=== PATIENT | female | born 1985 | race African-American/Black ===

== ENCOUNTER 2021-04-09 05:25 | Inpatient (IN) | payer OTHER, SELFPAY ==
[~2021-04-09] VITALS: Ht 160 cm; Wt 102.5 kg
[2021-04-09] MEDS ORDERED: CITRIC ACID/SODIUM CITRATE 30 ML UDC PO SCH (05:50)
[2021-04-09] MEDS ORDERED: METHYLERGONOVINE 0.2 MG/ML AMP IM PRN ×2 (05:50→08:40)
[2021-04-09] MEDS ORDERED: LACTATED RINGERS 1,000 ML IV SCH (05:50)
[2021-04-09 06:54] VITALS: BP 124/72
[2021-04-09] MEDS ORDERED: ceFAZolin 1,000 MG VIAL ONE (07:02)
[2021-04-09] MEDS ORDERED: MIDAZOLAM 2 MG/2 ML VIAL ONE (07:19)
[2021-04-09] MEDS ORDERED: MORPHINE PRES FREE 10 MG/10 ML AMP IV ONE (07:19)
[2021-04-09 07:29] LABS: BASOPHILS % (AUTO) 0.4 % (0.0-2.0); EOSINOPHILS # (AUTO) 0.1 K/uL (0-0.4); EOSINOPHILS % (AUTO) 0.9 % (0.0-4.0); HEMATOCRIT 36.7 % (36-48); HEMOGLOBIN 12.1 g/dL (12.0-16.0); MEAN CORPUSCULAR HEMOGLOBIN 29 pg (27-31); MEAN CORPUSCULAR HGB CONC 33 g/dL (33-37); MEAN CORPUSCULAR VOLUME 88.7 fL (80-94); MONOCYTES # (AUTO) 0.7 K/uL (0.8-1.0); MONOCYTES % (AUTO) 10.6 % (1.7-9.3); NEUTROPHILS # (AUTO) 3.8 K/uL (1.8-7.7); NEUTROPHILS % (AUTO) 58.1 % (42.2-75.2); PLATELET COUNT (AUTO) 225 K/uL (140-450); RED BLOOD CELL COUNT(AUTO) 4.14 MIL/uL (4.20-5.40); RED CELL DISTRIBUTION WIDTH 14.1 % (11.6-13.7); WHITE BLOOD COUNT (AUTO) 6.6 K/uL (4.8-10.8)
[2021-04-09] MEDS ORDERED: ceFAZolin 1,000 MG VIAL IVP ONE (07:30)
[2021-04-09 07:43] LABS: APPEARANCE,URINE HAZY (CLEAR); BILIRUBIN,URINE NEGATIVE (NEGATIVE); COLOR,URINE YELLOW (YELLOW); LEUKOCYTE ESTERASE ,URINE 2+ (NEGATIVE); NITRITE, URINE NEGATIVE (NEGATIVE); PH,URINE 7.5 (5.0-9.0); UGLUCOSE NEGATIVE (NEGATIVE)
[2021-04-09 07:44] LABS: ALBUMIN 2.6 g/dL (3.4-5.0); CREATININE 0.6 mg/dL (0.6-1.3); POTASSIUM 3.3 mmol/L (3.5-5.1); TOTAL BILIRUBIN 0.5 mg/dL (0.0-1.0)
[2021-04-09] MEDS ORDERED: diphenhydrAMINE 50 MG/ML VIAL IVP PRN ×2 (08:05)
[2021-04-09] MEDS ORDERED: NALBUPHINE 10 MG/ML AMP IVP PRN (08:05)
[2021-04-09] MEDS ORDERED: NALOXONE 0.4 MG/ML VIAL IVP PRN ×3 (08:05)
[2021-04-09] MEDS ORDERED: MEPERIDINE 25 MG/ML SYR IVP PRN (08:05)
[2021-04-09] MEDS ORDERED: ONDANSETRON 4 MG/2 ML VIAL IVP PRN ×2 (08:05)
[2021-04-09] MEDS ORDERED: HYDROmorphone 1 MG/ML AMP IVP PRN (08:05)
[2021-04-09] MEDS ORDERED: OXYTOCIN 20 UNITS in LACTATED RINGERS 1,000 ML IV SCH (08:05)
[2021-04-09 08:06] LABS: BLOOD, URINE 1+ (NEGATIVE); RBC,URINE 0-5 /HPF (0-5)
[2021-04-09 08:10] LABS: ANION GAP 15.7 (8-16); CARBON DIOXIDE 23.6 mmol/L (21-32)
[2021-04-09] MEDS ORDERED: OXYTOCIN 20 UNITS/LR PREMIX 1,000 ML IV ONE ×2 (08:37→21:17)
[2021-04-09] MEDS ORDERED: MEASLES, MUMPS, AND RUBELLA 1 VIAL SQVAC ONE (08:40)
[2021-04-09] MEDS ORDERED: bisacodyL 5 MG TABEC PO PRN (08:40)
[2021-04-09] MEDS ORDERED: SIMETHICONE 80 MG TAB.CHEW PO PRN (09:00)
[2021-04-09] MEDS ORDERED: IBUPROFEN 800 MG TAB PO PRN (11:55)
[2021-04-09] MEDS ORDERED: oxyCODONE/APAP 5/325 MG 1 TAB TAB PO PRN (11:55)
[2021-04-09] MEDS: KETOROLAC 30 MG/ML VIAL IM/IVP SCH ×3 (12:18→23:46)
[2021-04-09] MEDS ORDERED: POTASSIUM CHLORIDE 10 MEQ TABER PO SCH (13:00)
[2021-04-10] MEDS ORDERED: oxyCODONE/APAP 5/325 MG 1 TAB TAB PO PRN (02:00)
[2021-04-10] MEDS ORDERED: KETOROLAC 30 MG/ML VIAL IVP PRN (06:00)
[2021-04-10 06:48] LABS: BASOPHILS % (AUTO) 0.3 % (0.0-2.0); EOSINOPHILS % (AUTO) 0.4 % (0.0-4.0); HEMATOCRIT 31.7 % (36-48); HEMOGLOBIN 10.5 g/dL (12.0-16.0); LYMPHOCYTES # (AUTO) 1.6 K/uL (2.5-16.5); LYMPHOCYTES % (AUTO) 13.6 % (20.5-51.1); MEAN CORPUSCULAR HEMOGLOBIN 29 pg (27-31); MEAN CORPUSCULAR HGB CONC 33 g/dL (33-37); MEAN CORPUSCULAR VOLUME 88.3 fL (80-94); MONOCYTES # (AUTO) 0.9 K/uL (0.8-1.0); MONOCYTES % (AUTO) 7.3 % (1.7-9.3); NEUTROPHILS # (AUTO) 9.2 K/uL (1.8-7.7); NEUTROPHILS % (AUTO) 78.4 % (42.2-75.2); PLATELET COUNT (AUTO) 202 K/uL (140-450); RED BLOOD CELL COUNT(AUTO) 3.59 MIL/uL (4.20-5.40); RED CELL DISTRIBUTION WIDTH 14.4 % (11.6-13.7); WHITE BLOOD COUNT (AUTO) 11.8 K/uL (4.8-10.8)
[2021-04-10] MEDS: DOCUSATE SODIUM 100 MG GELCAP PO SCH (08:52)
[2021-04-10] MEDS: FERROUS SULFATE 325 MG TABEC PO SCH (08:52)
[2021-04-10] MEDS ORDERED: CAMERA MC ONE (19:21)
[2021-04-11] MEDS: FERROUS SULFATE 325 MG TABEC PO SCH (09:48)
[2021-04-11] MEDS: DOCUSATE SODIUM 100 MG GELCAP PO SCH (09:48)
== END 2021-04-11 17:10 | disposition home or self-care (01) | DRG 540 ==
LOC: MLD 05:25 → MFCC 11:01
PROVIDERS: ADMIT Obstetrics & Gynecology; ATTEND Obstetrics & Gynecology
PROC: 3E0234Z Introduction of Serum, Toxoid and Vaccine into Muscle, Percutaneous Approach (ICD-10-PCS; 2021-04-09)
PROC: 3E0134Z Introduction of Serum, Toxoid and Vaccine into Subcutaneous Tissue, Percutaneous Approach (ICD-10-PCS; 2021-04-09)
PROC: 10D00Z1 Extraction of Products of Conception, Low, Open Approach (ICD-10-PCS; principal; 2021-04-09 07:30)
DX: O34.211 Maternal care for low transverse scar from previous cesarean delivery (principal); O98.713 Human immunodeficiency virus [HIV] disease complicating pregnancy, third trimester; Z20.822 Contact with and (suspected) exposure to COVID-19; Z3A.39 39 weeks gestation of pregnancy; Z37.0 Single live birth; Z23 Encounter for immunization; Z21 Asymptomatic human immunodeficiency virus [HIV] infection status
CPT/HCPCS: 36415; 80053; 81001; 85025; 86592; 86762; 86886; 86900; 86901; 87081; 87086; 87340; J0690; J1885; J2250; J2270; J2590; J7120